=== PATIENT | female | born 1945 | race Caucasian/White ===

== ENCOUNTER 2018-10-07 13:39 | Outpatient (REF) | payer MEDICARE, SELFPAY ==
[2018-10-07 20:58] LABS: Lithium 0.47 mmol/L (0.60-1.20)
[2018-10-07 21:09] LABS: TSH (W/Ref FT4) 0.63 uIU/mL (0.358-3.74)
[2018-10-08 16:32] LABS: Albumin 4.2 g/dL (3.4-5.0); BUN 15 mg/dL (7-18); CREATININE 0.91 mg/dL (0.55-1.02); Calcium 10.1 mg/dL (8.5-10.1); Chloride 104 mmol/L (98-107); Glucose 87 mg/dL (70-100); PHOSPHORUS 3.7 mg/dL (2.6-4.7); Potassium 4.7 mmol/L (3.5-5.1); Sodium 141 mmol/L (136-145)
== END 2018-10-07 13:59 ==
LOC: NCHCN 13:39
PROVIDERS: PCP Family Medicine; Visit Provider Nurse Practitioner Family
DX: F31.70 Bipolar disorder, currently in remission, most recent episode unspecified (principal); Z51.81 Encounter for therapeutic drug level monitoring; E03.9 Hypothyroidism, unspecified; Z79.899 Other long term (current) drug therapy
CPT/HCPCS: 80069; 80178; 84443

== ENCOUNTER 2018-11-11 13:46 | Outpatient (REF) | payer MEDICARE, SELFPAY ==
[2018-11-11 20:43] LABS: Lithium 0.55 mmol/L (0.60-1.20)
== END 2018-11-11 14:06 ==
LOC: NCHCN 13:46
PROVIDERS: PCP Family Medicine; Visit Provider Nurse Practitioner Family
DX: F32.1 Major depressive disorder, single episode, moderate (principal); F41.1 Generalized anxiety disorder; R45.851 Suicidal ideations
CPT/HCPCS: 80178

== ENCOUNTER 2018-12-27 16:53 | Outpatient (REF) | payer MEDICARE, SELFPAY ==
[2018-12-27 21:40] LABS: Abs Immature Grans 0.01 k/cumm (0.0-0.09); Absolute Basophil Count 0.06 k/cumm (0.0-0.2); Absolute Eosinophil Count 0.21 k/cumm (0.0-0.7); Absolute Lymphocyte Count 0.88 k/cumm (1.2-3.4); Absolute Monocyte Count 0.55 k/cumm (0.11-0.7); Absolute Neutrophil Count 1.87 k/cumm (1.2-6.7); Basophils % 1.7; Eosinophils % 5.9; HCT 42.1 % (36.0-46.0); HGB 13.5 g/dL (12.0-15.5); Immature Grans % 0.3; Lymphocytes % 24.6; Mean Corp. HGB Concentration 32.1 g/dL (32.0-36.0); Mean Corpuscular Hemoglobin 31.7 pg (27.0-33.0); Mean Corpuscular Volume 98.8 fL (80-95); Mean Platelet Volume 13.3 fL (8.0-11.0); Monocytes % 15.4; Neutrophils % 52.1; Platelet Count 165 x1000/uL (130-400); RBC 4.26 m/cumm (4.00-5.20); RBC Distribution Width 13.1 % (11.7-14.6); White Blood Cell Count 3.58 k/cumm (4.4-10.8)
[2018-12-27 21:58] LABS: ALT 21 U/L (12-78); AST 20 U/L (15-37); Albumin 4.1 g/dL (3.4-5.0); Alkaline Phosphatase 80 U/L (46-116); Anion Gap 5.7 mmol/L (3-11); BUN 13 mg/dL (7-18); Bilirubin, Total 0.4 mg/dL (0.2-1.0); CO2 31.3 mmol/L (21.0-32.0); CREATININE 0.91 mg/dL (0.55-1.02); Calcium 10.2 mg/dL (8.5-10.1); Chloride 103 mmol/L (98-107); Glucose 89 mg/dL (70-100); Potassium 4.4 mmol/L (3.5-5.1); Sodium 140 mmol/L (136-145); TSH (W/Ref FT4) 2.52 uIU/mL (0.358-3.74); Total Protein 7.1 g/dL (6.4-8.2)
== END 2018-12-27 17:13 ==
LOC: NCHCN 16:53
PROVIDERS: PCP Family Medicine; Visit Provider Nurse Practitioner Family
DX: F32.1 Major depressive disorder, single episode, moderate (principal); F41.1 Generalized anxiety disorder; R53.83 Other fatigue
CPT/HCPCS: 80053; 84443; 85025

== ENCOUNTER 2019-06-16 12:26 | Outpatient (REF) | payer MEDICARE, SELFPAY ==
[2019-06-16 21:05] LABS: Lithium 0.67 mmol/L (0.60-1.20)
== END 2019-06-16 12:46 ==
LOC: LBN 12:26
PROVIDERS: PCP Family Medicine; Visit Provider Nurse Practitioner Family
DX: F33.41 Major depressive disorder, recurrent, in partial remission (principal); F41.1 Generalized anxiety disorder; Z51.81 Encounter for therapeutic drug level monitoring
CPT/HCPCS: 80178

== ENCOUNTER 2019-06-29 13:25 | Outpatient (REF) | payer MEDICARE, SELFPAY ==
[2019-06-29 21:43] LABS: Lithium 0.97 mmol/L (0.60-1.20)
[2019-07-03 15:06] LABS: TSH (W/Ref FT4) 0.29 uIU/mL (0.36-3.74)
[2019-07-03 15:33] LABS: FREE T4 1.15 ng/dL (0.76-1.46)
== END 2019-06-29 13:45 ==
LOC: NCHCN 13:25
PROVIDERS: PCP Family Medicine; Visit Provider Nurse Practitioner Family
DX: F31.30 Bipolar disorder, current episode depressed, mild or moderate severity, unspecified (principal); F41.1 Generalized anxiety disorder; Z51.81 Encounter for therapeutic drug level monitoring
CPT/HCPCS: 80178; 84439; 84443

== ENCOUNTER 2019-07-14 12:21 | Outpatient (REF) | payer MEDICARE, SELFPAY ==
[2019-07-14 22:05] LABS: Albumin 4.1 g/dL (3.4-5.0); BUN 17 mg/dL (7-18); PHOSPHORUS 3.3 mg/dL (2.6-4.7)
[2019-07-14 22:07] LABS: Lithium 0.78 mmol/L (0.60-1.20)
[2019-07-14 22:36] LABS: Anion Gap 7.3 mmol/L (3-11); CO2 28.7 mmol/L (21.0-32.0); CREATININE 0.93 mg/dL (0.55-1.02); Calcium 9.7 mg/dL (8.5-10.1); Chloride 106 mmol/L (98-107); Glucose 91 mg/dL (70-100); Potassium 4.7 mmol/L (3.5-5.1); Sodium 142 mmol/L (136-145)
== END 2019-07-14 12:41 ==
LOC: NCHCN 12:21
PROVIDERS: PCP Family Medicine; Visit Provider Nurse Practitioner Family
DX: F31.30 Bipolar disorder, current episode depressed, mild or moderate severity, unspecified (principal); Z51.81 Encounter for therapeutic drug level monitoring; Z79.899 Other long term (current) drug therapy
CPT/HCPCS: 80069; 80178

== ENCOUNTER 2019-08-03 15:17 | Outpatient (REF) | payer MEDICARE, SELFPAY ==
[2019-08-03 21:32] LABS: TSH (W/Ref FT4) 3.33 uIU/mL (0.36-3.74)
== END 2019-08-03 15:37 ==
LOC: NCHCN 15:17
PROVIDERS: PCP Family Medicine; Visit Provider Nurse Practitioner Family
DX: Z79.899 Other long term (current) drug therapy (principal)
CPT/HCPCS: 84443

== ENCOUNTER 2019-08-18 11:11 | Outpatient (REF) | payer MEDICARE, SELFPAY ==
[2019-08-18 20:20] LABS: Lithium 0.76 mmol/L (0.60-1.20)
== END 2019-08-18 11:31 ==
LOC: NCHCN 11:11
PROVIDERS: PCP Family Medicine; Visit Provider Nurse Practitioner Family
DX: F33.41 Major depressive disorder, recurrent, in partial remission (principal); Z51.81 Encounter for therapeutic drug level monitoring
CPT/HCPCS: 80178

== ENCOUNTER 2019-10-10 10:41 | Outpatient (REF) | payer MEDICARE, SELFPAY ==
[2019-10-10 21:38] LABS: TSH 3.25 uIU/mL (0.36-3.74)
== END 2019-10-10 11:01 ==
LOC: NCHCN 10:41
PROVIDERS: PCP Family Medicine; Visit Provider Family Medicine
DX: E03.9 Hypothyroidism, unspecified (principal)
CPT/HCPCS: 84443

== ENCOUNTER 2020-02-07 12:43 | Outpatient (REF) | payer MEDICARE, SELFPAY ==
[2020-02-07 20:46] LABS: TSH 1.89 uIU/mL (0.36-3.74)
== END 2020-02-07 13:03 ==
LOC: NCHCN 12:43
PROVIDERS: PCP Family Medicine; Visit Provider Family Medicine
DX: E03.9 Hypothyroidism, unspecified (principal)
CPT/HCPCS: 84443

== ENCOUNTER 2020-02-15 11:12 | Outpatient (REF) | payer MEDICARE, SELFPAY ==
[2020-02-15 20:54] LABS: Abs Immature Grans 0.01 k/cumm (0.0-0.09); Absolute Basophil Count 0.05 k/cumm (0.0-0.2); Absolute Eosinophil Count 0.32 k/cumm (0.0-0.7); Absolute Lymphocyte Count 0.91 k/cumm (1.2-3.4); Absolute Monocyte Count 0.51 k/cumm (0.11-0.7); Absolute Neutrophil Count 2.11 k/cumm (1.2-6.7); Basophils % 1.3; Eosinophils % 8.2; HCT 41.6 % (36.0-46.0); HGB 13.5 g/dL (12.0-15.5); Immature Grans % 0.3 %; Lymphocytes % 23.3; Mean Corp. HGB Concentration 32.5 g/dL (32.0-36.0); Mean Corpuscular Hemoglobin 31.2 pg (27.0-33.0); Mean Corpuscular Volume 96.1 fL (80-95); Mean Platelet Volume 13.4 fL (8.0-11.0); Neutrophils % 53.9; Platelet Count 158 x1000/uL (130-400); RBC 4.33 m/cumm (4.00-5.20); RBC Distribution Width 12.9 % (11.7-14.6); White Blood Cell Count 3.91 k/cumm (4.4-10.8)
[2020-02-15 21:20] LABS: ALT 26 U/L (14-59); AST 27 U/L (15-37); Albumin 4.1 g/dL (3.4-5.0); Alkaline Phosphatase 73 U/L (46-116); Anion Gap 6.9 mmol/L (3-11); BUN 13 mg/dL (7-18); Bilirubin, Total 0.4 mg/dL (0.2-1.0); C-Reactive Protein 0.05 mg/dL (0.0-0.3); CO2 27.1 mmol/L (21.0-32.0); CREATININE 0.91 mg/dL (0.55-1.02); Calcium 9.7 mg/dL (8.5-10.1); Chloride 104 mmol/L (98-107); FREE T4 1.13 ng/dL (0.76-1.46); Glucose 92 mg/dL (74-106); Potassium 4.4 mmol/L (3.5-5.1); Sodium 138 mmol/L (136-145); TSH 1.08 uIU/mL (0.36-3.74); Total Protein 7.2 g/dL (6.4-8.2)
[2020-02-19 10:33] LABS: Thyroglobulin Antibody <15 U/mL (<=60); Thyroperoxidase Antibody 32 U/mL (<=60)
== END 2020-02-15 11:32 ==
LOC: NCHCN 11:12
PROVIDERS: PCP Family Medicine; Visit Provider Family Medicine
DX: R63.4 Abnormal weight loss (principal); E03.9 Hypothyroidism, unspecified; R00.2 Palpitations
CPT/HCPCS: 80053; 86376; 84439; 84443; 84481; 85025; 86140

== ENCOUNTER 2020-11-21 14:39 | Outpatient (REF) | payer MEDICARE, SELFPAY ==
[2020-11-21 13:46] LABS: Lithium 0.3 mmol/l (0.6-1.2)
[2020-11-21 14:09] LABS: FREE T4 1.02 ng/dL (0.76-1.46); TSH 1.81 uIU/mL (0.36-3.74)
[2020-11-21 21:17] LABS: T3,Free 2.8 pg/mL (2.8-5.3)
== END 2020-11-21 14:40 | disposition home or self-care (01) ==
LOC: NCHCN 14:39
PROVIDERS: PCP Family Medicine; Visit Provider Nurse Practitioner Psychiatric/Mental Health
DX: F31.30 Bipolar disorder, current episode depressed, mild or moderate severity, unspecified (principal); Z51.81 Encounter for therapeutic drug level monitoring; E03.9 Hypothyroidism, unspecified
CPT/HCPCS: 80178; 84439; 84443; 84481

== ENCOUNTER 2021-01-24 19:00 | Outpatient (REF) | payer MEDICARE, SELFPAY ==
[2021-01-24 21:13] LABS: Anion Gap 10.3 mmol/L (3-11); BUN 18 mg/dL (7-18); CO2 27.7 mmol/L (21.0-32.0); CREATININE 1.1 mg/dL (0.55-1.02); Calcium 9.8 mg/dL (8.5-10.1); Chloride 103 mmol/L (98-107); Estimated GFR 48.42 (mL/min/1.73m2); Glucose 104 mg/dL (74-106); Potassium 4.2 mmol/L (3.5-5.1); Sodium 141 mmol/L (136-145)
== END 2021-01-24 19:01 | disposition home or self-care (01) ==
LOC: NCHCN 19:00
PROVIDERS: PCP Family Medicine; Visit Provider Nurse Practitioner Psychiatric/Mental Health
DX: Z51.81 Encounter for therapeutic drug level monitoring (principal)
CPT/HCPCS: 80048

== ENCOUNTER 2021-01-31 20:38 | Outpatient (REF) | payer MEDICARE, SELFPAY ==
[2021-01-31 20:56] LABS: ALT 27 U/L (14-59); AST 23 U/L (15-37); Albumin 4.3 g/dL (3.4-5.0); Alkaline Phosphatase 91 U/L (46-116); BUN 17 mg/dL (7-18); Bilirubin, Total 0.3 mg/dL (0.2-1.0); Calcium 9.9 mg/dL (8.5-10.1); Chloride 105 mmol/L (98-107); Estimated GFR 54.05 (mL/min/1.73m2); Glucose 113 mg/dL (74-106); Potassium 4.2 mmol/L (3.5-5.1); Sodium 142 mmol/L (136-145); Total Protein 7.6 g/dL (6.4-8.2)
[2021-01-31 21:17] LABS: PROTEIN 8.8 mg/dL
[2021-01-31 21:18] LABS: COMMENT (LAB VIEW ONLY) 61.32 mg/dL; Prot/Crea Ur Ratio 0.14
== END 2021-01-31 20:39 | disposition home or self-care (01) ==
LOC: NCHCN 20:38
PROVIDERS: PCP Family Medicine; Visit Provider Family Medicine
DX: F31.81 Bipolar II disorder (principal); R60.0 Localized edema
CPT/HCPCS: 80053; 82565; 84156

== ENCOUNTER 2021-03-07 12:20 | Outpatient (REF) | payer MEDICARE, SELFPAY ==
[2021-03-07 20:41] LABS: HCT 39.9 % (36.0-46.0); HGB 12.9 g/dL (11.2-15.7); MCH 31.9 pg (27.0-33.0); MCHC 32.3 % (32.0-36.0); MCV 98.5 fL (80-95); MPV 12.7 fL (8.0-11.0); Platelet Count 189 10^3/uL (130-400); RBC 4.05 10^6/uL (3.93-5.22); RDW 13.4 % (11.7-14.6); RDW-SD 48.4 fL; WBC 4.29 10^3/uL (4.4-10.8)
[2021-03-07 20:54] LABS: Anion Gap 8.8 mmol/L (3-11); BUN 18 mg/dL (7-18); CO2 27.2 mmol/L (21.0-32.0); Calcium 10.1 mg/dL (8.5-10.1); Chloride 107 mmol/L (98-107); Estimated GFR 54.05 (mL/min/1.73m2); Glucose 90 mg/dL (74-106); Potassium 4.5 mmol/L (3.5-5.1); Sodium 143 mmol/L (136-145); TSH 1.41 uIU/mL (0.36-3.74)
[2021-03-07 20:57] LABS: Lithium 0.4 mmol/l (0.6-1.2)
[2021-03-11 17:02] LABS: Vitamin B12 914 pg/mL (211-911)
[2021-03-11 17:04] LABS: Folate 16.5 ng/mL (See Note)
== END 2021-03-07 12:21 | disposition home or self-care (01) ==
LOC: NCHCN 12:20
PROVIDERS: PCP Family Medicine; Visit Provider Family Medicine
DX: F31.81 Bipolar II disorder (principal); R94.4 Abnormal results of kidney function studies; E03.9 Hypothyroidism, unspecified; D75.89 Other specified diseases of blood and blood-forming organs; Z51.81 Encounter for therapeutic drug level monitoring; Z79.899 Other long term (current) drug therapy
CPT/HCPCS: 80048; 85027; 80178; 82607; 82746; 84443

== ENCOUNTER 2021-03-07 19:55 | Outpatient (REF) | payer MEDICARE, SELFPAY | END 2021-03-07 19:56 | disposition home or self-care (01) | LOC: NCHCN 19:55 | PROVIDERS: PCP Family Medicine; Visit Provider Family Medicine | DX: D75.89 Other specified diseases of blood and blood-forming organs (principal); E03.9 Hypothyroidism, unspecified ==

== ENCOUNTER 2021-06-13 20:49 | Outpatient (REF) | payer MEDICARE, SELFPAY ==
[2021-06-13 21:47] LABS: Lithium 0.3 mmol/l (0.6-1.2)
[2021-06-13 21:54] LABS: Anion Gap 7.6 mmol/L (3-11); BUN 13 mg/dL (7-18); CO2 28.4 mmol/L (21.0-32.0); Chloride 105 mmol/L (98-107); Estimated GFR 54.05 (mL/min/1.73m2); Glucose 87 mg/dL (74-106); Potassium 4.7 mmol/L (3.5-5.1); Sodium 141 mmol/L (136-145); TSH (W/Ref FT4) 1.44 uIU/mL (0.36-3.74)
== END 2021-06-13 20:50 | disposition home or self-care (01) ==
LOC: NCHCN 20:49
PROVIDERS: PCP Family Medicine; Visit Provider Family Medicine
DX: F31.81 Bipolar II disorder (principal)
CPT/HCPCS: 80048; 80178; 84443

== ENCOUNTER 2021-10-07 16:19 | Outpatient (REF) | payer MEDICARE, SELFPAY ==
[2021-10-07 16:57] LABS: BUN 13 mg/dL (7-18); Calcium 9.8 mg/dL (8.5-10.1); Calculated LDL 110 mg/dL (<100); Chloride 104 mmol/L (98-107); Cholesterol 235 mg/dL (<200); Estimated GFR 53.91 (mL/min/1.73m2); Glucose 89 mg/dL (74-106); HDL Cholesterol 112 mg/dL (40-60); Potassium 4.2 mmol/L (3.5-5.1); Sodium 139 mmol/L (136-145); TSH 1.48 uIU/mL (0.36-3.74); Triglyceride 69 mg/dL (<150)
[2021-10-07 17:03] LABS: Lithium 0.5 mmol/l (0.6-1.2)
[2021-10-07 17:13] LABS: Iron 115 ug/dL (50-170); Total Iron Binding Capacity 287 ug/dL (250-450); Transferrin Sat 40 % (15-50)
== END 2021-10-07 16:20 | disposition home or self-care (01) ==
LOC: NCHCN 16:19
PROVIDERS: PCP Family Medicine; Visit Provider Family Medicine
DX: I10 Essential (primary) hypertension (principal); L65.0 Telogen effluvium; E03.9 Hypothyroidism, unspecified; F31.81 Bipolar II disorder
CPT/HCPCS: 80048; 80061; 80178; 83540; 83550; 84443

== ENCOUNTER 2022-02-10 18:52 | Outpatient (REF) | payer MEDICARE, SELFPAY ==
[2022-02-10 14:55] LABS: Lithium 0.3 mmol/l (0.6-1.2)
[2022-02-10 15:30] LABS: Anion Gap 8.7 mmol/L (3-11); BUN 17 mg/dL (7-18); CO2 28.3 mmol/L (21.0-32.0); CREATININE 0.9 mg/dL (0.55-1.02); Calcium 9.9 mg/dL (8.5-10.1); Chloride 105 mmol/L (98-107); Glucose 97 mg/dL (74-106); Potassium 4.7 mmol/L (3.5-5.1); Sodium 142 mmol/L (136-145); TSH (W/Ref FT4) 2.06 uIU/mL (0.36-3.74)
== END 2022-02-10 18:53 | disposition home or self-care (01) ==
LOC: NCHCN 18:52
PROVIDERS: PCP Family Medicine; Visit Provider Family Medicine
DX: I10 Essential (primary) hypertension (principal); F31.81 Bipolar II disorder; E03.9 Hypothyroidism, unspecified; Z51.81 Encounter for therapeutic drug level monitoring
CPT/HCPCS: 80048; 80178; 84443

== ENCOUNTER 2022-12-29 12:44 | Outpatient (REF) | payer MEDICARE, SELFPAY ==
[2022-12-29 20:56] LABS: HCT 44.2 % (36.0-46.0); HGB 14.6 g/dL (11.2-15.7); MCH 31.5 pg (27.0-33.0); MCV 95 fL (80-95); Platelet Count 172 10^3/uL (130-400); RBC 4.64 10^6/uL (3.93-5.22); RDW 11.9 % (11.7-14.6); RDW-SD 41.7 fL; WBC 3.69 10^3/uL (4.4-10.8)
[2022-12-29 21:37] LABS: Iron 61 ug/dL (50-170); Total Iron Binding Capacity 319 ug/dL (250-450); Transferrin Sat 19 % (15-50)
[2022-12-29 21:45] LABS: ALT 27 U/L (14-59); AST 26 U/L (15-37); Alkaline Phosphatase 85 U/L (46-116); Anion Gap 7.7 mmol/L (3-11); BUN 17 mg/dL (7-18); Bilirubin, Total 0.2 mg/dL (0.2-1.0); CO2 28.3 mmol/L (21.0-32.0); Calcium 9.6 mg/dL (8.5-10.1); Chloride 104 mmol/L (98-107); Estimated GFR 58.02 (mL/min/1.73m2); Glucose 96 mg/dL (74-106); Potassium 4.3 mmol/L (3.5-5.1); Sodium 140 mmol/L (136-145); TSH 0.71 uIU/mL (0.36-3.74); Total Protein 7.6 g/dL (6.4-8.2)
== END 2022-12-29 12:45 | disposition home or self-care (01) ==
LOC: NCHCN 12:44
PROVIDERS: PCP Family Medicine; Visit Provider Family Medicine
DX: Z13.0 Encounter for screening for diseases of the blood and blood-forming organs and certain disorders involving the immune mechanism (principal); E03.9 Hypothyroidism, unspecified; R14.0 Abdominal distension (gaseous)
CPT/HCPCS: 80053; 85027; 83540; 83550; 84443

== ENCOUNTER 2023-01-20 13:21 | Outpatient (REF) | payer MEDICARE, SELFPAY ==
[2023-01-20 22:33] LABS: Anion Gap 4.2 mmol/L (3-11); BUN 20 mg/dL (7-18); CO2 30.8 mmol/L (21.0-32.0); Calcium 10.4 mg/dL (8.5-10.1); Chloride 105 mmol/L (98-107); Estimated GFR 58.02 (mL/min/1.73m2); Glucose 72 mg/dL (74-106); Potassium 4.3 mmol/L (3.5-5.1); Sodium 140 mmol/L (136-145); TSH 1.75 uIU/mL (0.36-3.74)
[2023-01-20 22:47] LABS: Lithium 0.4 mmol/l (0.6-1.2)
== END 2023-01-20 13:22 | disposition home or self-care (01) ==
LOC: NCHCN 13:21
PROVIDERS: PCP Family Medicine; Visit Provider Family Medicine
DX: F31.70 Bipolar disorder, currently in remission, most recent episode unspecified (principal); E03.9 Hypothyroidism, unspecified; R14.0 Abdominal distension (gaseous); Z51.81 Encounter for therapeutic drug level monitoring; Z13.0 Encounter for screening for diseases of the blood and blood-forming organs and certain disorders involving the immune mechanism
CPT/HCPCS: 80048; 80178; 84443

== ENCOUNTER 2023-02-19 16:29 | Outpatient (REF) | payer MEDICARE, SELFPAY ==
[2023-02-19 21:04] LABS: BUN 18 mg/dL (7-18); Calcium 9.7 mg/dL (8.5-10.1); Chloride 104 mmol/L (98-107); Estimated GFR 58.02 (mL/min/1.73m2); Glucose 92 mg/dL (74-106); Potassium 4.2 mmol/L (3.5-5.1); Sodium 140 mmol/L (136-145); TSH 1.17 uIU/mL (0.36-3.74)
[2023-02-19 21:17] LABS: Vitamin D 25 Total 41.4 ng/mL (30-100)
[2023-02-22 10:17] LABS: Parathyroid Hormone,Intact 77 pg/mL (19-88)
== END 2023-02-19 16:30 | disposition home or self-care (01) ==
LOC: NCHCN 16:29
PROVIDERS: PCP Family Medicine; Visit Provider Family Medicine
DX: E03.9 Hypothyroidism, unspecified (principal); E55.9 Vitamin D deficiency, unspecified
CPT/HCPCS: 80048; 82306; 83970; 84443

== ENCOUNTER 2023-09-03 15:02 | Outpatient (REF) | payer MEDICARE, SELFPAY ==
[2023-09-03 14:41] LABS: Lithium 0.7 mmol/l (0.6-1.2)
== END 2023-09-03 15:03 | disposition home or self-care (01) ==
LOC: NCHCN 15:02
PROVIDERS: PCP Family Medicine; Visit Provider Nurse Practitioner Psychiatric/Mental Health
DX: F31.9 Bipolar disorder, unspecified (principal); Z51.81 Encounter for therapeutic drug level monitoring; Z79.899 Other long term (current) drug therapy
CPT/HCPCS: 80178

== ENCOUNTER 2023-12-22 09:58 | Outpatient (REF) | payer MEDICARE, SELFPAY ==
[2023-12-22 15:01] LABS: Lithium 0.6 mmol/l (0.6-1.2)
[2023-12-22 15:18] LABS: Anion Gap 5.5 mmol/L (3-11); BUN 18 mg/dL (7-18); CO2 32.5 mmol/L (21.0-32.0); CREATININE 1.1 mg/dL (0.55-1.02); Calcium 10.5 mg/dL (8.5-10.1); Calculated LDL 114 mg/dL (<100); Chloride 105 mmol/L (98-107); Cholesterol 231 mg/dL (<200); Estimated GFR 51.43 (mL/min/1.73m2); Glucose 98 mg/dL (74-106); HDL Cholesterol 107 mg/dL (40-60); Potassium 4.6 mmol/L (3.5-5.1); Sodium 143 mmol/L (136-145); TSH 3.13 uIU/Ml (0.36-3.74); Triglyceride 53 mg/dL (<150)
== END 2023-12-22 09:59 | disposition home or self-care (01) ==
LOC: NCHCN 09:58
PROVIDERS: PCP Family Medicine; Visit Provider Family Medicine
DX: I10 Essential (primary) hypertension (principal); E03.9 Hypothyroidism, unspecified; F31.81 Bipolar II disorder; Z51.81 Encounter for therapeutic drug level monitoring; Z79.899 Other long term (current) drug therapy
CPT/HCPCS: 80048; 80061; 80178; 83874; 84443

== ENCOUNTER 2024-07-07 15:00 | Outpatient (REF) | payer MEDICARE, SELFPAY ==
[2024-07-07 21:18] LABS: HCT 40.3 % (36.0-46.0); HGB 12.6 g/dL (11.2-15.7); MCH 31.6 pg (27.0-33.0); MCHC 31.3 % (32.0-36.0); MCV 101 fL (80-95); MPV 12.9 fL (8.0-11.0); Platelet Count 174 10^3/uL (130-400); RBC 3.99 10^6/uL (3.93-5.22); RDW 12.6 % (11.7-14.6); RDW-SD 47.1 fL; WBC 4.68 10^3/uL (4.4-10.8)
[2024-07-07 21:35] LABS: Lithium 0.8 mmol/L (0.6-1.2)
[2024-07-07 21:44] LABS: BUN 19 mg/dL (7-18); Calcium 10.8 mg/dL (8.5-10.1); Chloride 107 mmol/L (98-107); Estimated GFR 57.66 (mL/min/1.73m2); Glucose 88 mg/dL (74-106); Magnesium 2.3 mg/dL (1.8-2.4); Potassium 4.7 mmol/L (3.5-5.1); Sodium 144 mmol/L (136-145); TSH (W/Ref FT4) 2.62 uIU/mL (0.36-3.74)
== END 2024-07-07 15:01 | disposition home or self-care (01) ==
LOC: NCHCN 15:00
PROVIDERS: PCP Family Medicine; Visit Provider Family Medicine
DX: R00.2 Palpitations (principal)
CPT/HCPCS: 80048; 85027; 80178; 83735; 84443

== ENCOUNTER 2024-07-21 11:46 | Outpatient (REF) | payer MEDICARE, SELFPAY ==
[2024-07-21 17:12] LABS: Calcium 10.3 mg/dL (8.5-10.1); Vitamin D 25 Total 32.8 ng/mL (30-100)
[2024-07-21 22:55] LABS: Parathyroid Hormone,Intact 71 pg/mL (19-88)
== END 2024-07-21 11:47 | disposition home or self-care (01) ==
LOC: NCHCN 11:46
PROVIDERS: PCP Family Medicine; Visit Provider Family Medicine
DX: E83.52 Hypercalcemia (principal)
CPT/HCPCS: 82306; 82040; 82310; 83970

== ENCOUNTER 2025-01-17 15:20 | Outpatient (REF) | payer MEDICARE, SELFPAY ==
[2025-01-17 17:19] LABS: Lithium 0.9 mmol/L (0.6-1.2)
[2025-01-17 17:25] LABS: Anion Gap 5.8 mmol/L (3-11); BUN 22 mg/dL (7-18); CO2 30.2 mmol/L (21.0-32.0); CREATININE 1.1 mg/dL (0.55-1.02); Calcium 10.5 mg/dL (8.5-10.1); Chloride 106 mmol/L (98-107); Estimated GFR 51.11 (mL/min/1.73m2); Glucose 74 mg/dL (74-106); Potassium 4.5 mmol/L (3.5-5.1); Sodium 142 mmol/L (136-145)
[2025-01-17 18:13] LABS: FREE T4 0.92 ng/dL (0.76-1.46)
== END 2025-01-17 15:21 | disposition home or self-care (01) ==
LOC: NCHCN 15:20
PROVIDERS: PCP Family Medicine; Visit Provider Family Medicine
DX: F31.81 Bipolar II disorder (principal)
CPT/HCPCS: 80048; 80178; 84439; 84443

== ENCOUNTER 2025-03-08 11:52 | Outpatient (REF) | payer MEDICARE, SELFPAY ==
[2025-03-08 17:00] LABS: ALT 29 U/L (14-59); AST 22 U/L (15-37); Albumin 4.1 g/dL (3.4-5.0); Alkaline Phosphatase 79 U/L (46-116); Anion Gap 4.7 mmol/L (3-11); BUN 16 mg/dL (7-18); Bilirubin, Total 0.5 mg/dL (0.2-1.0); CO2 29.3 mmol/L (21.0-32.0); Calcium 10.3 mg/dL (8.5-10.1); Chloride 104 mmol/L (98-107); Estimated GFR 57.31 (mL/min/1.73m2); Glucose 101 mg/dL (74-106); Sodium 138 mmol/L (136-145); Total Protein 7.6 g/dL (6.4-8.2)
== END 2025-03-08 11:53 | disposition home or self-care (01) ==
LOC: NCHCN 11:52
PROVIDERS: PCP Family Medicine; Visit Provider Family Medicine
DX: B35.1 Tinea unguium (principal)
CPT/HCPCS: 80053

== ENCOUNTER 2025-09-12 09:01 | Outpatient (REF) | payer MEDICARE, SELFPAY ==
[2025-09-12 16:12] LABS: Anion Gap 5.8 mmol/L (3-11); BUN 20 mg/dL (9-23); CO2 30.2 mmol/L (20.0-31.0); Calcium 10.3 mg/dL (8.3-10.6); Chloride 107 mmol/L (98-107); Glucose 83 mg/dL (74-106); Potassium 4.2 mmol/L (3.5-5.1); Sodium 143 mmol/L (136-145)
[2025-09-12 16:23] LABS: Lithium 0.90 mmol/L (0.60-1.20)
== END 2025-09-12 09:02 | disposition home or self-care (01) ==
LOC: NCHCN 09:01
PROVIDERS: PCP Family Medicine; Visit Provider Family Medicine
DX: F31.81 Bipolar II disorder (principal); I10 Essential (primary) hypertension
CPT/HCPCS: 80048; 80178